=== PATIENT | female | born 1935 | race Caucasian/White ===

== ENCOUNTER → 2016-04-18 | Outpatient (CLI) | payer MEDICARE ==
[~2016-04-18] MED LIST: ASPIRIN 81M81 MG/TA2 PO; ATORVASTATIN; CARDIZEM CD360 MG PO; COZAAR100 MG PO; HYGROTON PO; LIPITOR 40MG TA40 MG PO; MOBIC15 MG PO; PLAVIX 75MG TAB75 MG PO; PROTONIX 40MG T40 MG PO; TYLENOL ARTHRI650 M1 PO
== END ==
LOC: COL.RAD 08:42
DX: M16.11 Unilateral primary osteoarthritis, right hip (principal)
CPT/HCPCS: J3301; Q9967

== ENCOUNTER → 2016-05-25 | Outpatient (CLI) | payer MEDICARE | LOC: MHCPAIN 09:57 | DX: G89.29 Other chronic pain (principal); M47.27 Other spondylosis with radiculopathy, lumbosacral region; M53.3 Sacrococcygeal disorders, not elsewhere classified; F17.210 Nicotine dependence, cigarettes, uncomplicated; Z79.02 Long term (current) use of antithrombotics/antiplatelets | CPT/HCPCS: G0463 ==

== ENCOUNTER → 2016-06-07 | Outpatient (CLI) | payer MEDICARE | LOC: MHCPAIN 09:09 | DX: Z53.8 Procedure and treatment not carried out for other reasons (principal) ==

== ENCOUNTER → 2016-06-14 | Outpatient (CLI) | payer MEDICARE | LOC: MHCPAIN 14:04 | DX: M53.3 Sacrococcygeal disorders, not elsewhere classified (principal) | CPT/HCPCS: G0260; J1040; Q9967 ==

== ENCOUNTER → 2016-07-13 | Outpatient (CLI) | payer MEDICARE | LOC: MHCPAIN 09:24 | DX: G89.29 Other chronic pain (principal); M47.27 Other spondylosis with radiculopathy, lumbosacral region; M53.3 Sacrococcygeal disorders, not elsewhere classified | CPT/HCPCS: G0463 ==

== ENCOUNTER → 2016-10-29 | Outpatient (CLI) | payer MEDICARE | LOC: MHCPAIN 09:55 | DX: G89.29 Other chronic pain (principal); M47.27 Other spondylosis with radiculopathy, lumbosacral region; M53.3 Sacrococcygeal disorders, not elsewhere classified; F17.210 Nicotine dependence, cigarettes, uncomplicated; Z79.02 Long term (current) use of antithrombotics/antiplatelets | CPT/HCPCS: G0463 ==

== ENCOUNTER 2016-10-30 08:00 | Outpatient (RCR) | payer MEDICARE | END 2016-11-01 10:13 | disposition still patient (30) | LOC: WSPT 08:00 | DX: M41.86 Other forms of scoliosis, lumbar region (principal); M51.36 Other intervertebral disc degeneration, lumbar region; M16.9 Osteoarthritis of hip, unspecified | CPT/HCPCS: G8981-GP; G8982-GP; G8983-GP ==

== ENCOUNTER → 2016-11-08 | Outpatient (CLI) | payer MEDICARE | LOC: MHCPAIN 07:58 | DX: M47.27 Other spondylosis with radiculopathy, lumbosacral region (principal); M48.06 Spinal stenosis, lumbar region | CPT/HCPCS: J1100; Q9967 ==

== ENCOUNTER → 2016-11-21 | Outpatient (CLI) | payer MEDICARE | LOC: MHCPAIN 08:12 | DX: G89.29 Other chronic pain (principal); M47.27 Other spondylosis with radiculopathy, lumbosacral region; M53.3 Sacrococcygeal disorders, not elsewhere classified; F17.210 Nicotine dependence, cigarettes, uncomplicated; Z79.02 Long term (current) use of antithrombotics/antiplatelets | CPT/HCPCS: G0463 ==

== ENCOUNTER → 2016-11-21 | Outpatient (CLI) | payer MEDICARE | LOC: COL.RAD 08:49 | DX: M16.11 Unilateral primary osteoarthritis, right hip (principal) ==

== ENCOUNTER → 2016-11-22 | Outpatient (CLI) | payer MEDICARE | LOC: MHCPAIN 07:38 | DX: M16.11 Unilateral primary osteoarthritis, right hip (principal) | CPT/HCPCS: J1040; Q9967 ==

== ENCOUNTER → 2016-11-28 | Outpatient (CLI) | payer MEDICARE | LOC: MHCPAIN 11:59 | DX: G89.29 Other chronic pain (principal); M47.27 Other spondylosis with radiculopathy, lumbosacral region; M53.3 Sacrococcygeal disorders, not elsewhere classified; M16.9 Osteoarthritis of hip, unspecified; Z79.02 Long term (current) use of antithrombotics/antiplatelets; F17.210 Nicotine dependence, cigarettes, uncomplicated | CPT/HCPCS: G0463 ==

== ENCOUNTER → 2017-01-01 | Outpatient (CLI) | payer MEDICARE | LOC: MHCPAIN 08:45 | DX: G89.29 Other chronic pain (principal); M47.27 Other spondylosis with radiculopathy, lumbosacral region; M53.3 Sacrococcygeal disorders, not elsewhere classified; M16.9 Osteoarthritis of hip, unspecified; F17.210 Nicotine dependence, cigarettes, uncomplicated; Z79.02 Long term (current) use of antithrombotics/antiplatelets | CPT/HCPCS: G0463 ==

== ENCOUNTER → 2017-02-11 | Outpatient (CLI) | payer MEDICARE ==
[~2017-02-11] MED LIST changes: +K-DUR 10 MEQ T10 MEQ PO
== END ==
LOC: COL.RAD 09:22
DX: N28.89 Other specified disorders of kidney and ureter (principal); R31.0 Gross hematuria; I70.0 Atherosclerosis of aorta; Z90.710 Acquired absence of both cervix and uterus
CPT/HCPCS: Q9967

== ENCOUNTER → 2017-02-12 | Outpatient (CLI) | payer MEDICARE ==
[~2017-02-12] VITALS: Ht 162.6 cm; Wt 54.3 kg
[2017-02-12 06:10] VITALS: BP 161/78; PULSE 75
[2017-02-12 07:07] VITALS: BP 167/70; PULSE 90
[2017-02-12 07:08] VITALS: BP 147/65; PULSE 90
[2017-02-12 07:09] VITALS: BP 149/74; PULSE 85
[2017-02-12 07:10] VITALS: BP 155/67; PULSE 80
== END ==
LOC: COL.CARD 05:45
DX: I25.10 Atherosclerotic heart disease of native coronary artery without angina pectoris (principal); I73.9 Peripheral vascular disease, unspecified
CPT/HCPCS: A9502; J2785

== ENCOUNTER → 2017-02-15 | Outpatient (CLI) | payer MEDICARE ==
[2017-02-15 12:40] LABS: HIV 1/2 Antibodies Non-Reactive; HIV-1p24 Antigen Non-Reactive
== END ==
LOC: COL.LAB 10:48
PROVIDERS: Orthopaedic Surgery
DX: Z01.812 Encounter for preprocedural laboratory examination (principal)

== ENCOUNTER 2017-02-28 12:15 | Day surgery (SDC) | payer MEDICARE ==
[~2017-02-28] VITALS: Ht 162.6 cm; Wt 56.4 kg
[2017-02-28] VITALS (8 sets, daily range): BP systolic 110–147; BP diastolic 44–94; PULSE 51–76; TEMP 97.3–98.2
[~2017-02-28 12:15] MED LIST changes: +CARDIZEM 60MG T60 MG PO; -CARDIZEM CD360 MG PO; +TYLENOL 8 HR PO; -TYLENOL ARTHRI650 M1 PO
[2017-02-28] MEDS ORDERED: PROTONIX 40MG T40 MG PO (13:08)
[2017-03-01 02:10] VITALS: BP 141/70; PULSE 65; TEMP 98.2
[2017-03-01 05:34] VITALS: BP 134/57; PULSE 65; TEMP 98
[2017-03-01 08:33] VITALS: BP 123/48; PULSE 81; TEMP 98.7
== END 2017-03-01 13:50 | disposition home or self-care (01) ==
LOC: SDCO 12:15 → SURG 16:24 → SDCO 03-01 13:50
DX: C67.8 Malignant neoplasm of overlapping sites of bladder (principal); D09.0 Carcinoma in situ of bladder; R31.0 Gross hematuria; I10 Essential (primary) hypertension; I77.89 Other specified disorders of arteries and arterioles; L93.0 Discoid lupus erythematosus; I34.0 Nonrheumatic mitral (valve) insufficiency; M16.11 Unilateral primary osteoarthritis, right hip; I73.9 Peripheral vascular disease, unspecified; F17.210 Nicotine dependence, cigarettes, uncomplicated; Z88.2 Allergy status to sulfonamides; Z88.8 Allergy status to other drugs, medicaments and biological substances; Z90.710 Acquired absence of both cervix and uterus; D64.9 Anemia, unspecified; M41.9 Scoliosis, unspecified
CPT/HCPCS: OP; J0690; J1100; J2270; J2405; J2704; J3010; J7030; J7120; Q9967

== ENCOUNTER → 2017-03-20 | Outpatient (CLI) | payer MEDICARE | LOC: COL.RAD 15:35 | DX: R60.0 Localized edema (principal) ==

== ENCOUNTER 2017-04-04 11:42 | Day surgery (SDC) | payer MEDICARE ==
[~2017-04-04] VITALS: Ht 162.6 cm; Wt 52.2 kg
[2017-04-04] MEDS ORDERED: TIAZAC360 MG PO (12:16)
[2017-04-04] MEDS ORDERED: PLAVIX 75MG TAB75 MG PO (12:17)
[2017-04-04] MEDS ORDERED: HYGROTON 2525 MG/TAB PO (12:18)
[2017-04-04 12:21] VITALS: BP 142/59; PULSE 71; TEMP 98
[2017-04-04 13:18] LABS: CALCIUM 8.9 mg/dL (8.4-10.2); CREATININE, serum 0.77 mg/dL (0.52-1.25); POTASSIUM 3.6 mmol/L (3.4-5.0)
[2017-04-04 16:00] VITALS: BP 165/75; PULSE 79; TEMP 98.8
[2017-04-04 18:45] VITALS: BP 147/60; PULSE 81; TEMP 97.9
[2017-04-05 00:57] VITALS: BP 142/67; PULSE 74; TEMP 97.4
[2017-04-05 04:15] VITALS: BP 141/83; PULSE 83; TEMP 97.9
[2017-04-05 08:00] VITALS: BP 149/49; PULSE 72; TEMP 97.4
== END 2017-04-05 11:50 | disposition home or self-care (01) ==
LOC: SDCO 11:42 → SURG 16:10 → SDCO 04-05 11:50
PROVIDERS: Nurse Anesthetist, Certified Registered
DX: C67.9 Malignant neoplasm of bladder, unspecified (principal); I25.10 Atherosclerotic heart disease of native coronary artery without angina pectoris; I10 Essential (primary) hypertension; I73.9 Peripheral vascular disease, unspecified; M16.11 Unilateral primary osteoarthritis, right hip; I34.0 Nonrheumatic mitral (valve) insufficiency; F17.210 Nicotine dependence, cigarettes, uncomplicated; K21.9 Gastro-esophageal reflux disease without esophagitis; Z90.710 Acquired absence of both cervix and uterus; Z79.01 Long term (current) use of anticoagulants; Z83.3 Family history of diabetes mellitus; Z82.49 Family history of ischemic heart disease and other diseases of the circulatory system; Z80.0 Family history of malignant neoplasm of digestive organs
CPT/HCPCS: OP; J0360; J0690; J1100; J2270; J2405; J2704; J3010; J7120

== ENCOUNTER → 2017-08-26 | Outpatient (CLI) | payer MEDICARE ==
[~2017-08-26] MED LIST changes: +CARDIZEM CD360 MG PO; +CEFTIN500 MG PO; +HYGROTON 2525 MG/TAB PO; +TIAZAC360 MG PO; +TYLENOL 325MG325 MG PO
== END ==
LOC: COL.RAD 08:29
DX: C65.1 Malignant neoplasm of right renal pelvis (principal)
CPT/HCPCS: A9503

== ENCOUNTER → 2017-09-13 | Outpatient (CLI) | payer MEDICARE | LOC: COL.RAD 08:48 | DX: C65.1 Malignant neoplasm of right renal pelvis (principal) | CPT/HCPCS: Q9967 ==

== ENCOUNTER → 2017-12-09 | Outpatient (CLI) | payer MEDICARE | LOC: MHCPAIN 10:07 | DX: G89.29 Other chronic pain (principal); M47.817 Spondylosis without myelopathy or radiculopathy, lumbosacral region; M54.16 Radiculopathy, lumbar region; M53.3 Sacrococcygeal disorders, not elsewhere classified; M41.9 Scoliosis, unspecified | CPT/HCPCS: G0463 ==

== ENCOUNTER 2017-12-13 14:07 | Emergency (ER) | payer MEDICARE ==
[~2017-12-13] VITALS: Ht 162.6 cm; Wt 44.5 kg
[2017-12-13 14:16] VITALS: BP 157/74; TEMP 97.9
[2017-12-13] MEDS ORDERED: PREDNISONE10 MG PO (15:49)
[2017-12-13 16:18] VITALS: PULSE 83
== END 2017-12-13 16:25 | disposition home or self-care (01) ==
LOC: COL.ER 14:07
DX: M54.6 Pain in thoracic spine (principal); C79.00 Secondary malignant neoplasm of unspecified kidney and renal pelvis; Z79.02 Long term (current) use of antithrombotics/antiplatelets
CPT/HCPCS: J1170

== ENCOUNTER → 2017-12-19 | Outpatient (CLI) | payer MEDICARE ==
[~2017-12-19] MED LIST changes: +PREDNISONE10 MG PO
== END ==
LOC: MHCPAIN 08:17
DX: M54.16 Radiculopathy, lumbar region (principal); M47.817 Spondylosis without myelopathy or radiculopathy, lumbosacral region
CPT/HCPCS: J1040; Q9967

== ENCOUNTER 2017-12-26 12:29 | Day surgery (SDC) | payer MEDICARE ==
[~2017-12-26] VITALS: Ht 162.6 cm; Wt 42.8 kg
[2017-12-26] MEDS ORDERED: MAGNESIUM ELEME30 MG PO (13:20)
[2017-12-26 13:30] VITALS: BP 141/88; PULSE 76; TEMP 97.1
[2017-12-26 16:10] VITALS: BP 132/59; PULSE 70; TEMP 97.2
[2017-12-26 16:25] VITALS: BP 122/64; PULSE 86
[2017-12-26 16:26] VITALS: TEMP 97.4
[2017-12-26 16:35] VITALS: BP 146/52; PULSE 68
== END 2017-12-26 16:56 | disposition home or self-care (01) ==
LOC: SDCO 12:29
DX: N13.0 Hydronephrosis with ureteropelvic junction obstruction (principal); D64.9 Anemia, unspecified; G90.01 Carotid sinus syncope; B02.9 Zoster without complications; I10 Essential (primary) hypertension; E87.6 Hypokalemia; L93.0 Discoid lupus erythematosus; I34.0 Nonrheumatic mitral (valve) insufficiency; M16.0 Bilateral primary osteoarthritis of hip; M81.0 Age-related osteoporosis without current pathological fracture; I73.9 Peripheral vascular disease, unspecified; M41.9 Scoliosis, unspecified; F17.210 Nicotine dependence, cigarettes, uncomplicated; I25.10 Atherosclerotic heart disease of native coronary artery without angina pectoris; Z79.02 Long term (current) use of antithrombotics/antiplatelets; Z90.710 Acquired absence of both cervix and uterus; Z85.51 Personal history of malignant neoplasm of bladder; Z85.53 Personal history of malignant neoplasm of renal pelvis; Z88.2 Allergy status to sulfonamides; Z88.8 Allergy status to other drugs, medicaments and biological substances; Z83.3 Family history of diabetes mellitus; Z82.49 Family history of ischemic heart disease and other diseases of the circulatory system; Z80.0 Family history of malignant neoplasm of digestive organs
CPT/HCPCS: C1769; C2617; J0690; J2405; J2704; J3010; J7030; Q9967

== ENCOUNTER → 2017-12-31 | Outpatient (CLI) | payer MEDICARE ==
[~2017-12-31] MED LIST changes: +CEFTIN 250250 MG/TAB PO; +MAGNESIUM ELEME30 MG PO
== END ==
LOC: MHCPAIN 13:27
DX: G89.29 Other chronic pain (principal); M47.817 Spondylosis without myelopathy or radiculopathy, lumbosacral region; M54.16 Radiculopathy, lumbar region; M53.3 Sacrococcygeal disorders, not elsewhere classified; M96.1 Postlaminectomy syndrome, not elsewhere classified; M47.814 Spondylosis without myelopathy or radiculopathy, thoracic region
CPT/HCPCS: G0463

== ENCOUNTER 2018-01-03 06:59 | Emergency (ER) | payer MEDICARE ==
[~2018-01-03] VITALS: Ht 162.6 cm; Wt 43.2 kg
[~2018-01-03 06:59] MED LIST changes: -CEFTIN 250250 MG/TAB PO
[2018-01-03 07:04] VITALS: BP 165/87
[2018-01-03 07:50] LABS: BASO % 0.3 % (0.0-2.0); EOS % 0.3 % (0-4.0); GRAN # 1.9 (1.4-6.5); GRAN % 61.3 % (42.2-75.2); HEMATOCRIT 32.4 % (37.0-47.0); HEMOGLOBIN 10.9 g/dl (12.5-16.0); LYMPH # 0.9 (1.2-3.4); LYMPH % 27.9 % (20.0-51.0); MEAN CELL VOLUME 92 fl (80.0-100.0); MEAN CORPUSCULAR HEMOGLOBIN 31 pg (27.0-31.0); MEAN CORPUSCULAR HGB CONC 34 g/dl (33.0-37.0); MEAN PLATELET VOLUME 9.7 fl (7.4-10.4); MONO # 0.3 (0.1-0.6); MONO % 9.6 % (1.7-9.3); PLATELET COUNT 211 K/mm3 (130-400); RED BLOOD COUNT 3.52 M/mm3 (4.10-5.30); REDCELL DISTRIBUTION WIDTH-CV 16.6 % (11.5-14.5)
[2018-01-03 08:05] LABS: ALBUMIN 3.3 gm/dL (3.5-5.0); BILIRUBIN,TOTAL 0.4 mg/dL (0.0-1.0); CALCIUM 8.8 mg/dL (8.4-10.2); CREATININE, serum 0.96 mg/dL (0.52-1.25); POTASSIUM 3.8 mmol/L (3.4-5.0); TOTAL PROTEIN 6.3 gm/dL (6.4-8.2)
[2018-01-03 08:46] LABS: COLLECTION METHOD CLEAN CATCH
[2018-01-03 08:56] LABS: PH 7 (5-8); URINE APPEARANCE Cloudy; URINE BACTERIA Rare /hpf; URINE BILIRUBIN Negative (NEGATIVE); URINE BLOOD 1+ (NEGATIVE); URINE COLOR Yellow; URINE GLUCOSE Negative (NEGATIVE); URINE KETONE Negative (NEGATIVE); URINE LEUKOCYTE ESTERASE 3+ (NEGATIVE); URINE NITRATE Negative (NEGATIVE); URINE PROTEIN(semi-quant) 2+ (NEGATIVE); URINE RBC 20-50 /hpf; URINE UROBILINOGEN Negative (NEGATIVE)
[2018-01-03] MEDS ORDERED: CEFTIN 250250 MG/TAB PO (08:59)
[2018-01-03 09:05] VITALS: PULSE 94
== END 2018-01-03 09:08 | disposition home or self-care (01) ==
LOC: COL.ER 06:59
PROVIDERS: Emergency Medicine
DX: S09.90XA Unspecified injury of head, initial encounter (principal); S01.01XA Laceration without foreign body of scalp, initial encounter; N39.0 Urinary tract infection, site not specified; Z79.02 Long term (current) use of antithrombotics/antiplatelets; W19.XXXA Unspecified fall, initial encounter; W22.8XXA Striking against or struck by other objects, initial encounter; Y92.009 Unspecified place in unspecified non-institutional (private) residence as the place of occurrence of the external cause

== ENCOUNTER 2018-03-29 14:21 | Observation (INO) | payer MEDICARE ==
[~2018-03-29] VITALS: Ht 162.6 cm; Wt 45.8 kg
[~2018-03-29 14:21] MED LIST changes: +CEFTIN 250250 MG/TAB PO
[2018-03-29 15:19] LABS: BASO % 0.2 % (0.0-2.0); GRAN # 7.1 (1.4-6.5); GRAN % 88.9 % (42.2-75.2); HEMOGLOBIN 11.8 g/dl (12.5-16.0); LYMPH # 0.4 (1.2-3.4); LYMPH % 4.9 % (20.0-51.0); MEAN CELL VOLUME 95 fl (80.0-100.0); MEAN CORPUSCULAR HEMOGLOBIN 32 pg (27.0-31.0); MEAN CORPUSCULAR HGB CONC 34 g/dl (33.0-37.0); MEAN PLATELET VOLUME 9.9 fl (7.4-10.4); MONO # 0.4 (0.1-0.6); MONO % 5.5 % (1.7-9.3); PLATELET COUNT 291 K/mm3 (130-400); RED BLOOD COUNT 3.65 M/mm3 (4.10-5.30); REDCELL DISTRIBUTION WIDTH-CV 12.7 % (11.5-14.5)
[2018-03-29 15:21] LABS: HEMATOCRIT 34.8 % (37.0-47.0)
[2018-03-29 15:24] LABS: ALBUMIN 3.2 gm/dL (3.5-5.0); BILIRUBIN,TOTAL 0.6 mg/dL (0.0-1.0); CALCIUM 9.2 mg/dL (8.4-10.2); CREATININE, serum 0.94 mg/dL (0.52-1.25); POTASSIUM 3.6 mmol/L (3.4-5.0); TOTAL PROTEIN 6.3 gm/dL (6.4-8.2)
[2018-03-29] MEDS ORDERED: FENTANYL 25 MCG TD (16:24)
[2018-03-29] MEDS ORDERED: FENTANYL 100MCG TD (16:25)
--- NOTE | 2018-03-29 16:29 | NUR ---
CLARENCE was called to ED for patient placement. CLARENCE made aware that patient could not return home. CLARENCE was informed that pt was denied by the hospice house and [facility] had screened pt but did not make a formal decision. CLARENCE called [facility], SW was informed that the family only recieved consult of care and met with family but family declined going to a hospice house. PT confirmed that she denied that level of care and question why she could not stay in the hospital. CLARENCE called [facility] and spokes with [facility] to determine status. [facility] could do an admission candy dipper hand 03/30/2018. CLARENCE confirmed placement to [facility]. CLARENCE informed [facility] staff. in ED and family of statues with [facility]. Family expressed preference to [facility]. CLARENCE confirmed status. CLARENCE faxed inp paper for the pt to do and emergency admit to [facility] in the morning. CLARENCE edu family. Family agreeable to plan and much prefer [facility]. PT diana Transfer to [facility] 03/29/2018
[2018-03-29 17:36] VITALS: BP 170/78; PULSE 66; TEMP 97.9
[2018-03-29] MEDS ORDERED: AMOXICILLIN 50500 MG PO (18:05)
[2018-03-29] MEDS ORDERED: NORCO 325 MG-51 TAB PO (18:18)
[2018-03-29 19:13] VITALS: BP 161/76; PULSE 72
[2018-03-29] MEDS ORDERED: TYLENOL 8 HR PO (20:11)
--- NOTE | 2018-03-29 21:17 | NUR ---
PT resting in bed A+Ox4. no pain. no soa. no nausea. scab on the right forhead, bruising on the left confucianism. bilateral arm bruising. reported falling. sift assessment complete. no needs at this time. call light in reach
[2018-03-29 23:49] VITALS: BP 165/88; PULSE 77; TEMP 98.1
--- NOTE | 2018-03-30 00:24 | NUR ---
pt dressing not secure- changed pt dressing using sterile technique. flushed port-flushes well, blood return observed. incontinent BM, fly care provided, changed brief and pads. pt has a red, open, dime-size sore on coccyx- covered with coccyx mepilex. no needs at this time. call light in reach
[2018-03-30 03:33] VITALS: BP 166/81; PULSE 79; TEMP 98
--- NOTE | 2018-03-30 03:56 | NUR ---
pt took tubing off along with cap. this nurse scubbed port tubing and applied new cap. placed pt back onto NS @75ml/hr with new tubing. no needs at this time. call light in reach
--- NOTE | 2018-03-30 04:38 | NUR ---
PT incontinent with both urine and BM. changed bed lines. pt stated "i did not have enough time to get to the toilet". nurse educated pt to call for help when needing to go to bathroom, and if experiencing urinary incontinence. bed alarm on. no needs at this time. call light within reach
[2018-03-30 06:02] LABS: BASO % 0.2 % (0.0-2.0); EOS % 0.4 % (0-4.0); GRAN # 4.3 (1.4-6.5); GRAN % 80.3 % (42.2-75.2); HEMOGLOBIN 10.4 g/dl (12.5-16.0); LYMPH # 0.5 (1.2-3.4); LYMPH % 9.6 % (20.0-51.0); MEAN CELL VOLUME 96 fl (80.0-100.0); MEAN CORPUSCULAR HEMOGLOBIN 32 pg (27.0-31.0); MEAN CORPUSCULAR HGB CONC 34 g/dl (33.0-37.0); MONO # 0.5 (0.1-0.6); MONO % 8.9 % (1.7-9.3); PLATELET COUNT 260 K/mm3 (130-400); RED BLOOD COUNT 3.23 M/mm3 (4.10-5.30); REDCELL DISTRIBUTION WIDTH-CV 12.6 % (11.5-14.5)
[2018-03-30 06:11] LABS: HEMATOCRIT 30.9 % (37.0-47.0)
[2018-03-30 06:16] LABS: CALCIUM 8.8 mg/dL (8.4-10.2); CREATININE, serum 0.86 mg/dL (0.52-1.25); POTASSIUM 3.3 mmol/L (3.4-5.0)
[2018-03-30 07:24] VITALS: BP 155/79; PULSE 87; TEMP 98.4
--- NOTE | 2018-03-30 08:20 | NUR ---
Assessment completed, drowsy but easy to arouse and is alert/oriented x 4, vital signs stable/ blood pressures have been running high as she stated she has not been taking all her medications routinely, she reports aches/pains "all over", she was able to take all PO meds with some juice but is refusing breakfast, she stated " just the thought of food makes her nasueated, and that she has been eating very little for quite some time now", she appears very malnourished /dietary consult has been ordered, heart RRR/ditsal pulse are palpable and she is in SR on tele, she does have HX of a.fib, lungs CTA/ no resp.difficulty noted, she has multiple skin issues including a pressure ulcer to sacral/coccyx area / shes has a large healing wound to her right forehead/ and inumerable othe small scabs, bruises and markds scattered all over her body, she denies any needs or concerns at this time other than the fact that we keep waking her up, Will continue to monitor
[2018-03-30 09:48] LABS: COLLECTION METHOD CLEAN CATCH
[2018-03-30 09:58] LABS: BUDDING YEAST Present /hpf; MUCOUS Present /lpf; PH 6 (5-8); URINE APPEARANCE Cloudy; URINE BACTERIA Rare /hpf; URINE BILIRUBIN Negative (NEGATIVE); URINE BLOOD 1+ (NEGATIVE); URINE COLOR Yellow; URINE GLUCOSE Negative (NEGATIVE); URINE KETONE Trace (NEGATIVE); URINE LEUKOCYTE ESTERASE 2+ (NEGATIVE); URINE NITRATE Negative (NEGATIVE); URINE PROTEIN(semi-quant) Negative (NEGATIVE); URINE UROBILINOGEN Negative (NEGATIVE); URINE WBC >50 /hpf
[2018-03-30] MEDS ORDERED: FENTANYL 25 MCG TD (10:12)
[2018-03-30] MEDS ORDERED: FENTANYL 100MCG TD (10:12)
[2018-03-30] MEDS ORDERED: NORCO 325 MG-51 TAB PO (10:20)
--- NOTE | 2018-03-30 12:53 | NUR ---
Patient transferring to [facility] snf facility, I de-accessed her PORT, her family is present and transferring her to [facility] by private vehilce, I have called report to receiving nurse Kate
== END 2018-03-30 12:54 ==
LOC: COL.ER 14:21 → MEDICAL 16:18
PROVIDERS: Emergency Medicine; ADMIT Internal Medicine
DX: E86.0 Dehydration (principal); R53.1 Weakness; S06.2X9A Diffuse traumatic brain injury with loss of consciousness of unspecified duration, initial encounter; R29.6 Repeated falls; E44.0 Moderate protein-calorie malnutrition; E87.1 Hypo-osmolality and hyponatremia; I10 Essential (primary) hypertension; Z85.54 Personal history of malignant neoplasm of ureter; I73.9 Peripheral vascular disease, unspecified; I25.10 Atherosclerotic heart disease of native coronary artery without angina pectoris; M19.90 Unspecified osteoarthritis, unspecified site; M81.0 Age-related osteoporosis without current pathological fracture; M41.86 Other forms of scoliosis, lumbar region; F17.210 Nicotine dependence, cigarettes, uncomplicated; Z90.6 Acquired absence of other parts of urinary tract; Z90.5 Acquired absence of kidney; Z90.710 Acquired absence of both cervix and uterus; Z79.02 Long term (current) use of antithrombotics/antiplatelets; Z88.2 Allergy status to sulfonamides; Z88.8 Allergy status to other drugs, medicaments and biological substances; Z80.0 Family history of malignant neoplasm of digestive organs; Z82.49 Family history of ischemic heart disease and other diseases of the circulatory system; Z83.3 Family history of diabetes mellitus
CPT/HCPCS: C9113; G0378; J3010; J7030

== ENCOUNTER → 2018-04-06 | Outpatient (REF) ==
[~2018-04-06] MED LIST changes: +AMOXICILLIN 50500 MG PO; +FENTANYL 100MCG TD; +FENTANYL 25 MCG TD; +NORCO 325 MG-51 TAB PO
[2018-04-06 08:04] LABS: COLLECTION METHOD CLEAN CATCH
[2018-04-06 08:15] LABS: BUDDING YEAST Present /hpf; PH 5 (5-8); SQUAMOUS EPITHELIAL 0-2 /hpf; URINE APPEARANCE Hazy; URINE BACTERIA None Seen /hpf; URINE BILIRUBIN Negative (NEGATIVE); URINE BLOOD 2+ (NEGATIVE); URINE COLOR Yellow; URINE GLUCOSE Negative (NEGATIVE); URINE KETONE Negative (NEGATIVE); URINE LEUKOCYTE ESTERASE 3+ (NEGATIVE); URINE NITRATE Negative (NEGATIVE); URINE PROTEIN(semi-quant) Negative (NEGATIVE); URINE UROBILINOGEN Negative (NEGATIVE)
== END ==
LOC: ZCOL.LAB 08:03
PROVIDERS: Family Medicine
DX: N39.0 Urinary tract infection, site not specified (principal)